=== PATIENT | female | born 1970 | race Caucasian/White ===

== ENCOUNTER → 2022-02-10 08:45 | Outpatient (CLI) | payer OTHER, MEDICAID, SELFPAY ==
--- NOTE | 2022-02-10 08:47 | DI.MRI.S_ITS ---
PROCEDURE: MR LUMBAR SPINE WO CON INDICATIONS: CHRONIC PROGRESSIVE LBP TECHNIQUE: Noncontrast sagittal T1 spin echo and T2 fast echo, coronal T2, sagittal STIR, and T2 fast spin echo through the lumbar spine. COMPARISON: [facility], CR, XR LUMBAR SPINE 2 OR 3 VIEWS, 05/20/2021, 8:02. FINDINGS: Image quality: Excellent. Alignment and Curvature: 5 lumbar type vertebral bodies are present by plain film. 6 mm of retrolisthesis of T12 on L1, L1 on L2, and L2 on L3. 4 mm of retrolisthesis of L3 on L4. Bone Marrow: Marrow is of normal overall signal. No acute vertebral body compression fractures. Mild reactive signal throughout the endplates of the thoracolumbar spine. Spinal Cord: Conus medullaris terminates at the mid L2 level. Visualized cord demonstrates normal signal and size. Paraspinous Soft Tissues: No paravertebral masses. T12-L1: Moderate disc height loss and desiccation. Mild diffuse disc bulge. Mild facet and ligamentum flavum hypertrophy. Mild epidural lipomatosis. Mild canal stenosis. Moderate right greater than left foraminal stenosis. L1-L2: Moderate disc height loss and desiccation. Mild diffuse disc bulge. Mild facet and ligamentum flavum hypertrophy. Mild epidural lipomatosis. Mild canal stenosis. Moderate left and mild right foraminal stenosis. L2-L3: Moderate disc height loss and desiccation. Mild diffuse disc bulge. Mild facet and ligamentum flavum hypertrophy. Mild epidural lipomatosis. Severe canal stenosis. Moderate bilateral foraminal stenosis. L3-L4: Moderate disc height loss and desiccation. Mild diffuse disc bulge. Mild facet and ligamentum flavum hypertrophy. Mild epidural lipomatosis. Severe canal stenosis. Moderate bilateral foraminal stenosis. L4-L5: Moderate disc height loss and desiccation. Mild diffuse disc bulge. Moderate facet and ligamentum flavum hypertrophy. Severe canal stenosis. Moderate subarticular foraminal stenosis bilaterally. L5-S1: Severe disc height loss and desiccation. Mild diffuse disc bulge. Moderate facet hypertrophy. Mild canal stenosis. Moderate right and mild left foraminal stenosis. IMPRESSION: 1. Multilevel degenerative disc and facet disease, as well as ligamentum flavum hypertrophy and epidural lipomatosis. 2. Multilevel canal stenoses, worst at L2-L3, L3-L4, and L4-L5, where there are severe canal stenosis. 3. Multilevel moderate foraminal stenosis as described above. Dictated by: Kesha Baeza M.D. on 02/10/2022 at 10:58 Transcribed by: ARCHANA on 02/10/2022 at 11:02 Approved by: Kesha Baeza M.D. on 02/10/2022 at 14:51
== END ==
PROVIDERS: PCP Nurse Practitioner; Referring Provider Physical Medicine & Rehabilitation; Visit Provider Physical Medicine & Rehabilitation
DX: M47.816 Spondylosis without myelopathy or radiculopathy, lumbar region (principal); M51.36 Other intervertebral disc degeneration, lumbar region; M51.37 Other intervertebral disc degeneration, lumbosacral region; M48.061 Spinal stenosis, lumbar region without neurogenic claudication; M48.07 Spinal stenosis, lumbosacral region; M43.16 Spondylolisthesis, lumbar region
CPT/HCPCS: 72148

== ENCOUNTER → 2022-03-29 07:58 | Outpatient (CLI) | payer OTHER, MEDICAID, SELFPAY ==
--- NOTE | 2022-03-29 | DI.RAD.S_ITS ---
PROCEDURE: XR CHEST 2V INDICATIONS: PAIN WITH BREATHING TECHNIQUE: 2 views of the chest were acquired. COMPARISON: None. FINDINGS: Surgical changes and devices: None. Lungs and pleura: Lungs are clear. No pleural effusions or pneumothorax. Mediastinum: Mediastinal contours are normal. Heart size is normal. Bones and chest wall: No suspicious bony abnormalities. Soft tissues appear unremarkable. IMPRESSION: No acute cardiopulmonary process demonstrated radiographically. Dictated by: Cornel Pimentel M.D. on 03/29/2022 at 11:37 Approved by: Cornel Pimentel M.D. on 03/29/2022 at 11:38
== END ==
PROVIDERS: PCP Nurse Practitioner; Referring Provider Nurse Practitioner; Visit Provider Nurse Practitioner
DX: R07.1 Chest pain on breathing (principal)
CPT/HCPCS: 71046

== ENCOUNTER 2023-05-25 10:30 | Outpatient (RCR) | payer OTHER, MEDICAID, SELFPAY ==
--- NOTE | 2023-04-25 09:03 | PT.OIE ---
Current Diagnoses Spondylolisthesis, lumbar region (04/25/23) Spondylosis without myelopathy or radiculopathy, lumbar region (04/25/23) Segmental and somatic dysfunction of thoracic region (04/25/23) Segmental and somatic dysfunction of lumbar region (04/25/23) Difficulty in walking, not elsewhere classified (04/25/23) Abnormal posture (04/25/23) Weakness (04/25/23) Past Medical History (Last Reviewed 03/06/22 @ 08:42 by Lonny Mora DO) Cervical somatic dysfunction Chronic bilateral low back pain with bilateral sciatica Chronic bilateral thoracic back pain Cranial somatic dysfunction Facet arthropathy, lumbar History of intervertebral disc disorder Hx of substance abuse Lumbar region somatic dysfunction Pelvic somatic dysfunction Sacral region somatic dysfunction Segmental and somatic dysfunction of abdomen and other regions Segmental and somatic dysfunction of rib cage Somatic dysfunction of lower extremity Spondylolisthesis at L4-L5 level Thoracic region somatic dysfunction Past Surgical History (Last Reviewed 03/06/22 @ 08:42 by Lonny Mora DO) H/O: hysterectomy Visit Care Team Role Provider Type KIRSTIE Londono Family Provider Non-Staff Primary Care Provider Specialty: Nursing Address: [facility], [address] [place], [address] Email: Lonny Mora DO Attending Provider Physician Referring Provider Specialty: Interventional Radiology Physiatry Pain Management Address: [address] [place], [address] Email: [email or web address] Physical Therapy Initial Evaluation PT-OP-A Visit Information Start: 04/05/23 10:11 Freq: Status: Active Protocol: Document 04/25/23 07:29 [facility] (Rec: 04/25/23 09:03 [facility] [id number]) Out-Patient Physical Therapy Visit Information Visit Information Visit Type Initial Evaluation Visit Start Time 07:32 Visit Stop Time 08:15 Visit Number 1 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 History of Current Condition Pt reports LBP and B hip pain (L>R). Pt also gets pain down ant legs to knnes L>R. 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 She felt a pop and felt fire from midback to B knees. She has had PT and aquatic PT, and massage. Aquatic PT was the only thing that helped. Pt has had injections (cortizone in spine ) and it made it worse for 3-4 days but no relief after that . THis was shortly after hurting herself. Pt not working d/t disabled. She was on pain killers for a long time and doctor watned to take her off. She now goes to the methadone clinic. Only surgery is hysterectomy. Pt reports hwen she is hurting really bad , it is hard to bear down for a BM and gets constipation. Sometimes she has an urgency to go. Prior Treatments and Tests MRI: IMPRESSION: 1. Multilevel degenerative disc and facet disease, as well as ligamentum flavum hypertrophy and epidural lipomatosis. 2. Multilevel canal stenoses, worst at L2-L3, L3-L4, and L4- L5, where there are severe canal stenosis. 3. Multilevel moderate foraminal stenosis as described above. Treatment Goals Patient/Caregiver Goals be able to live w/o crying out , be able to play with grandson on her feet and micha him like he likes(2.5 years old) PT-OP-C Subjective Start: 04/05/23 10:11 Freq: Status: Active Protocol: Document 04/25/23 07:29 [facility] (Rec: 04/25/23 09:03 [facility] [id number]) Patient Questionnaires Oswestry Low Back Index Oswestry Score 32/50 OP-PT Pain Assessment Location LBP Pain Location Details thoracic to lumbar to L>R hips Scale Used best: 5/10 worst: 10/10 Description Aching,Sharp Frequency Constant Radiating Location ant thighs to knees Pain Aggravating Factors Standing,Sitting,Walking, Bending,Lifting Other Pain Aggravating Factors laying in the wrong position Other Pain Alleviating Factors aquatic PT, change position when its painful PT-OP-F Manual Assessment Start: 04/05/23 10:11 Freq: Status: Active Protocol: Document 04/25/23 07:29 [facility] (Rec: 04/25/23 09:03 [facility] [id number]) Manual Assessments Soft Tissue Assessment Soft Tissue Mobility Assessment Glutes, piriformis, HS, ES, QL B tightness. PT-OP-G Mobility & Gait Start: 04/05/23 10:11 Freq: Status: Active Protocol: Document 04/25/23 07:29 [facility] (Rec: 04/25/23 09:03 [facility] [id number]) OP Gait Assessment Comments Gait Comments does not achieve full L knee ext, dec stance time LLE, B dec pusho ff, fwd lean PT-OP-J Posture/Palpation/Skin Start: 04/05/23 10:11 Freq: Status: Active Protocol: Document 04/25/23 07:29 [facility] (Rec: 04/25/23 09:03 [facility] [id number]) Posture Evaluation Comments Posture Comments inc fwd lean, L knee bent, wt more to RLE, flexed at hips, inc kyphosis, fwd shoulders and head, loss of kyphosis PT-OP-K Range of Motion Start: 04/05/23 10:11 Freq: Status: Active Protocol: Document 04/25/23 07:29 [facility] (Rec: 04/25/23 09:03 [facility] [id number]) Lumbar Spine Range of Motion Lumbar Spine Active Percentage Flexion 15 Extension 5 Rotation Left 10 Rotation Right 10 Lateral Flexion Left 25 Lateral Flexion Right 25 ROM Limitations Pain Comments pain all directions Hip Goniometric Range of Motion Hip ROM Limitations Comments unable to tolerate flex greart then about 60 deg passive B, unable to tolerate SLR testing , seated IR WFL, dec ER w/ limited tolerated to ROM in supine-seated shows limit PT-OP-L Special Tests Start: 04/05/23 10:11 Freq: Status: Active Protocol: Document 04/25/23 07:29 [facility] (Rec: 04/25/23 09:03 [facility] [id number]) Special Tests Lumbar Spine Special Tests Slump Test Results positive B (L sooner than R) Straight Leg Raise Test Results unable to tolerate test PT-OP-M Strength Start: 04/05/23 10:11 Freq: Status: Active Protocol: Document 04/25/23 07:29 [facility] (Rec: 04/25/23 09:03 [facility] [id number]) Hip Strength Hip Manual Muscle Testing Right Flexion (L2) 3 Fair Abduction 2+ Poor+ External Rotation 3+ Fair+ Internal Rotation 3+ Fair+ Left Flexion (L2) 3 Fair Abduction 2+ Poor+ External Rotation 3+ Fair+ Internal Rotation 3+ Fair+ Knee Strength Knee Manual Muscle Testing Right Flexion (S2) 3 Fair Extension (L3) 3 Fair Left Flexion (S2) 3 Fair Extension (L3) 3+ Fair+ Ankle/Foot Strength Ankle and Foot Manual Muscle Testing Right Dorsiflexion (L4) 3+ Fair+ Plantarflexion (S1) 4- Good- Left Dorsiflexion (L4) 4- Good- Plantarflexion (S1) 4- Good- Comments PF seated testing PT-OP-Q Treatments Start: 04/05/23 10:11 Freq: Status: Active Protocol: Document 04/25/23 07:29 [facility] (Rec: 04/25/23 09:03 [facility] [id number]) Therapeutic Exercises Sitting Exercises pelvic tilt Sitting Exercise Name comfortable range Reps/Minutes 12 PF Side bilateral Equipment Used L2 Reps/Minutes 15 ea Hip ER Side bilateral Equipment Used L2 Reps/Minutes 20 Comments cues core engagement n glide Sitting Exercise Name comfortable range Side bilateral Reps/Minutes 12 april Sitting Exercise Name cues core engagement Side bilateral Comments 10 PT-OP-T Assessment and Plan Start: 04/05/23 10:11 Freq: Status: Active Protocol: Document 04/25/23 07:29 [facility] (Rec: 04/25/23 09:03 [facility] [id number]) Physical Therapy Assessment Rehab Potential Rehabilitation Potential Fair Evaluation Complexity Number of Personal Factors/Comorbidities 3 or More Number of Body Systems Impaired 4 or More Clinical Presentation at Evaluation Evolving Impairments Impairments Activity Tolerance,Balance, Functional Activities, Functional Mobility,Gait,Pain, Posture,ROM,Soft Tissue Mobility,Strength,Transfers Goals ALEX Impairment 32/50 Short Term Goal (STG) Pt will improve ALEX score to no greater than 27/50 to show improved functional ability STG Duration 4/ Chcf Goal (LTG) Pt will improve ALEX score to no greater than 20/50 to show improved functional ability LTG Duration 07/08 ROM Short Term Goal (STG) Improve flex to at least 30% of normal to improve ability to bend over STG Duration / Hook Puller Goal (LTG) Pt will improve ROM to at least 50% of normal range in all directions for lumbar spine to allow greater ease w/ ADLs LTG Duration 07/08 activity Hook Puller Goal (LTG) Pt will report being able to play in standing w/grandson more w/o severe inc in pain. LTG Duration 07/08 strength Short Term Goal (STG) Pt will be indep w/HEP STG Duration 05/27 Chcf Goal (LTG) Pt will show improved strength to at least 4/5 for all BLE LE MMT to allow greater ease w /mobility. LTG Duration 07/08 Assessment Summary Assessment Pt presents w/chronic thoracic and LBP w/radicaular pain into B hips and ant thighs. 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 She now has limited mobility and dec spinal and hip ROM d/t pain along w/significant weakness into LEs B. She is positive w/ neural tension testing and can get easily get flared w/ movement. SHe would benefit from skilled PT to try to improve her function and dec her pain to allow greater ease w/ADLs. Physical Therapy Plan Frequency and Duration Frequency of Treatment 2x/Week Duration of treatment (weeks) 10 Plan of Care Start Date 04/25/23 Plan of Care End Date 07/04/23 Therapeutic Interventions Therapeutic Interventions Balance Training,Gait Training ,Home Exercise Program,Joint Mobilizations,Manual Therapy, Neuromuscular Re-education, Orthotic/Prosthetic Management ,Patient/Caregiver Education, Self-Care/Home Management,Soft Tissue Mobilization,Taping, Therapeutic Activities, Therapeutic Exercises Modalities Cold Pack/Ice Massage,Hot Packs,Traction- Mechanical, Ultrasound Next Visit Focus/Plan Next Note Type Treatment Note Next Visit Plan Place yoga mat on table for inc cushion review HEP, try to get gentle ROM and strength for hips, back and LEs manual: gentle STM to hips, HS , LB
--- NOTE | 2023-04-25 09:03 | PT.OPPOC ---
Physical, Occupational & Speech Therapy At [facility] Current Diagnoses Spondylolisthesis, lumbar region (04/25/23) Spondylosis without myelopathy or radiculopathy, lumbar region (04/25/23) Segmental and somatic dysfunction of thoracic region (04/25/23) Segmental and somatic dysfunction of lumbar region (04/25/23) Difficulty in walking, not elsewhere classified (04/25/23) Abnormal posture (04/25/23) Weakness (04/25/23) Visit Care Team Role Provider Type KIRSTIE Londono Family Provider Non-Staff Primary Care Provider Specialty: Nursing Address: [facility], [address] , [place], [address] Email: Lonny Mora DO Attending Provider Physician Referring Provider Specialty: Interventional Radiology Physiatry Pain Management Address: [address] [place], [address] Email: [email or web address] Plan Of Care PT-OP-T Assessment and Plan Start: 04/05/23 10:11 Freq: Status: Active Protocol: Document 04/25/23 07:29 [facility] (Rec: 04/25/23 09:03 [facility] [id number]) Physical Therapy Assessment Rehab Potential Rehabilitation Potential Fair Evaluation Complexity Number of Personal Factors/Comorbidities 3 or More Number of Body Systems Impaired 4 or More Clinical Presentation at Evaluation Evolving Impairments Impairments Activity Tolerance,Balance, Functional Activities, Functional Mobility,Gait,Pain, Posture,ROM,Soft Tissue Mobility,Strength,Transfers Goals ALEX Impairment 32/50 Short Term Goal (STG) Pt will improve ALEX score to no greater than 27/50 to show improved functional ability STG Duration 4/ Tourist Adviser Goal (LTG) Pt will improve ALEX score to no greater than 20/50 to show improved functional ability LTG Duration 07/08 ROM Short Term Goal (STG) Improve flex to at least 30% of normal to improve ability to bend over STG Duration 4/2 Tourist Adviser Goal (LTG) Pt will improve ROM to at least 50% of normal range in all directions for lumbar spine to allow greater ease w/ ADLs LTG Duration 07/08 activity Mcc Goal (LTG) Pt will report being able to play in standing w/grandson more w/o severe inc in pain. LTG Duration 07/08 strength Short Term Goal (STG) Pt will be indep w/HEP STG Duration 05/27 Tourist Adviser Goal (LTG) Pt will show improved strength to at least 4/5 for all BLE LE MMT to allow greater ease w /mobility. LTG Duration 07/08 Assessment Summary Assessment Pt presents w/chronic thoracic and LBP w/radicaular pain into B hips and ant thighs. 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 She now has limited mobility and dec spinal and hip ROM d/t pain along w/significant weakness into LEs B. She is positive w/ neural tension testing and can get easily get flared w/ movement. SHe would benefit from skilled PT to try to improve her function and dec her pain to allow greater ease w/ADLs. Physical Therapy Plan Frequency and Duration Frequency of Treatment 2x/Week Duration of treatment (weeks) 10 Plan of Care Start Date 04/25/23 Plan of Care End Date 07/04/23 Therapeutic Interventions Therapeutic Interventions Balance Training,Gait Training ,Home Exercise Program,Joint Mobilizations,Manual Therapy, Neuromuscular Re-education, Orthotic/Prosthetic Management ,Patient/Caregiver Education, Self-Care/Home Management,Soft Tissue Mobilization,Taping, Therapeutic Activities, Therapeutic Exercises Modalities Cold Pack/Ice Massage,Hot Packs,Traction- Mechanical, Ultrasound Next Visit Focus/Plan Next Note Type Treatment Note Next Visit Plan Place yoga mat on table for inc cushion review HEP, try to get gentle ROM and strength for hips, back and LEs manual: gentle STM to hips, HS , LB Plan of Care Dates Plan of Care Start Date 04/25/23 Plan of Care End Date 07/04/23 Electronically Signed by: Kylah Contreras, PT 04/25/23 0903 If you are in agreement with this Plan of Care, please return a signed and dated copy. I have reviewed this Plan of Care and certify that the skilled therapy services above are required to meet the patient?s needs. Physician Signature Date Printed Name and Credentials Clinical Instructor Signature Printed Name and Credentials
--- NOTE | 2023-05-01 08:17 | PT.OTN ---
Current Diagnoses Spondylolisthesis, lumbar region (05/01/23) Spondylosis without myelopathy or radiculopathy, lumbar region (05/01/23) Segmental and somatic dysfunction of thoracic region (05/01/23) Segmental and somatic dysfunction of lumbar region (05/01/23) Difficulty in walking, not elsewhere classified (05/01/23) Abnormal posture (05/01/23) Weakness (05/01/23) Physical Therapy Treatment Note PT-OP-A Visit Information Start: 04/05/23 10:11 Freq: Status: Active Protocol: Document 05/01/23 07:30 [facility] (Rec: 05/01/23 08:17 [facility] [id number]) Out-Patient Physical Therapy Visit Information Visit Information Visit Type Treatment Note Visit Start Time 07:33 Visit Stop Time 08:13 Visit Number 2 Number of METAL OFF BEARER Visits 0 PT-OP-B Current Condition Start: 04/05/23 10:11 Freq: Status: Active Protocol: Document 04/25/23 07:29 [facility] (Rec: 04/25/23 09:03 [facility] [id number]) Current Condition History of Current Condition Onset Date 1994 Current Complaints LBP and B hip pain. History of Current Condition Pt reports LBP and B hip pain (L>R). Pt also gets pain down ant legs to knnes L>R. 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 She felt a pop and felt fire from midback to B knees. She has had PT and aquatic PT, and massage. Aquatic PT was the only thing that helped. Pt has had injections (cortizone in spine ) and it made it worse for 3-4 days but no relief after that . THis was shortly after hurting herself. Pt not working d/t disabled. She was on pain killers for a long time and doctor watned to take her off. She now goes to the methadone clinic. Only surgery is hysterectomy. Pt reports hwen she is hurting really bad , it is hard to bear down for a BM and gets constipation. Sometimes she has an urgency to go. Prior Treatments and Tests MRI: IMPRESSION: 1. Multilevel degenerative disc and facet disease, as well as ligamentum flavum hypertrophy and epidural lipomatosis. 2. Multilevel canal stenoses, worst at L2-L3, L3-L4, and L4- L5, where there are severe canal stenosis. 3. Multilevel moderate foraminal stenosis as described above. Treatment Goals Patient/Caregiver Goals be able to live w/o crying out , be able to play with grandson on her feet and micha him like he likes(2.5 years old) PT-OP-C Subjective Start: 04/05/23 10:11 Freq: Status: Active Protocol: Document 05/01/23 07:30 [facility] (Rec: 05/01/23 08:17 [facility] [id number]) OP-PT Subjective Patient Comments Patient Comments Pt reports after doing the exercises, she had difficulty walking. She feels like the ones w/the legs w/the band. PT-OP-F Manual Assessment Start: 04/05/23 10:11 Freq: Status: Active Protocol: Document 04/25/23 07:29 [facility] (Rec: 04/25/23 09:03 [facility] [id number]) Manual Assessments Soft Tissue Assessment Soft Tissue Mobility Assessment Glutes, piriformis, HS, ES, QL B tightness. PT-OP-G Mobility & Gait Start: 04/05/23 10:11 Freq: Status: Active Protocol: Document 04/25/23 07:29 [facility] (Rec: 04/25/23 09:03 [facility] [id number]) OP Gait Assessment Comments Gait Comments does not achieve full L knee ext, dec stance time LLE, B dec pusho ff, fwd lean PT-OP-J Posture/Palpation/Skin Start: 04/05/23 10:11 Freq: Status: Active Protocol: Document 04/25/23 07:29 [facility] (Rec: 04/25/23 09:03 [facility] [id number]) Posture Evaluation Comments Posture Comments inc fwd lean, L knee bent, wt more to RLE, flexed at hips, inc kyphosis, fwd shoulders and head, loss of kyphosis PT-OP-K Range of Motion Start: 04/05/23 10:11 Freq: Status: Active Protocol: Document 04/25/23 07:29 [facility] (Rec: 04/25/23 09:03 [facility] [id number]) Lumbar Spine Range of Motion Lumbar Spine Active Percentage Flexion 15 Extension 5 Rotation Left 10 Rotation Right 10 Lateral Flexion Left 25 Lateral Flexion Right 25 ROM Limitations Pain Comments pain all directions Hip Goniometric Range of Motion Hip ROM Limitations Comments unable to tolerate flex greart then about 60 deg passive B, unable to tolerate SLR testing , seated IR WFL, dec ER w/ limited tolerated to ROM in supine-seated shows limit PT-OP-L Special Tests Start: 04/05/23 10:11 Freq: Status: Active Protocol: Document 04/25/23 07:29 [facility] (Rec: 04/25/23 09:03 [facility] [id number]) Special Tests Lumbar Spine Special Tests Slump Test Results positive B (L sooner than R) Straight Leg Raise Test Results unable to tolerate test PT-OP-M Strength Start: 04/05/23 10:11 Freq: Status: Active Protocol: Document 04/25/23 07:29 [facility] (Rec: 04/25/23 09:03 [facility] [id number]) Hip Strength Hip Manual Muscle Testing Right Flexion (L2) 3 Fair Abduction 2+ Poor+ External Rotation 3+ Fair+ Internal Rotation 3+ Fair+ Left Flexion (L2) 3 Fair Abduction 2+ Poor+ External Rotation 3+ Fair+ Internal Rotation 3+ Fair+ Knee Strength Knee Manual Muscle Testing Right Flexion (S2) 3 Fair Extension (L3) 3 Fair Left Flexion (S2) 3 Fair Extension (L3) 3+ Fair+ Ankle/Foot Strength Ankle and Foot Manual Muscle Testing Right Dorsiflexion (L4) 3+ Fair+ Plantarflexion (S1) 4- Good- Left Dorsiflexion (L4) 4- Good- Plantarflexion (S1) 4- Good- Comments PF seated testing PT-OP-Q Treatments Start: 04/05/23 10:11 Freq: Status: Active Protocol: Document 05/01/23 07:30 [facility] (Rec: 05/01/23 08:17 [facility] [id number]) Therapeutic Exercises Sitting Exercises pelvic tilt Sitting Exercise Name A/P; lat Side bilateral Reps/Minutes 15 ea PF Sitting Exercise Name APs Side bilateral Reps/Minutes 30 ea Hip ER Side bilateral Equipment Used no band Reps/Minutes 20 Comments cues core engagement n glide Sitting Exercise Name comfortable range Side bilateral Reps/Minutes 11 may Sitting Exercise Name cues core engagement Side bilateral Reps/Minutes 15 Standing Exercises counter stretch Standing Exercise Name fwd lean Side bilateral Reps/Minutes [id number] Manual Therapy Treatment Soft Tissue Mobilization glute Body Location L>R Mobilization Type Rolling,Sustained Pressure Intensity/Depth Moderate Body Position Sidelying low back Body Location B ES & QL Mobilization Type Myofascial Release,Rolling Intensity/Depth sup to mod Body Position Sidelying PT-OP-T Assessment and Plan Start: 04/05/23 10:11 Freq: Status: Active Protocol: Document 05/01/23 07:30 [facility] (Rec: 05/01/23 08:17 [facility] [id number]) Physical Therapy Assessment Goals ALEX Impairment 32/50 Short Term Goal (STG) Pt will improve ALEX score to no greater than 27/50 to show improved functional ability STG Duration 05/27 Penitentiary Goal (LTG) Pt will improve ALEX score to no greater than 20/50 to show improved functional ability LTG Duration 07/08 ROM Short Term Goal (STG) Improve flex to at least 30% of normal to improve ability to bend over STG Duration 05/28 Pinball Machine Repairer Goal (LTG) Pt will improve ROM to at least 50% of normal range in all directions for lumbar spine to allow greater ease w/ ADLs LTG Duration 07/08 activity Penitentiary Goal (LTG) Pt will report being able to play in standing w/grandson more w/o severe inc in pain. LTG Duration 07/08 strength Short Term Goal (STG) Pt will be indep w/HEP STG Duration 05/27 Pinball Machine Repairer Goal (LTG) Pt will show improved strength to at least 4/5 for all BLE LE MMT to allow greater ease w /mobility. LTG Duration 07/08 Assessment Summary Assessment Pt did well with transition of exercises to without the band . She does require cues for core engagement and posture throughout along w/working only into comfortable range. pt had dec mm tension after manual. Physical Therapy Plan Frequency and Duration Frequency of Treatment 2x/Week Duration of treatment (weeks) 10 Plan of Care Start Date 04/25/23 Plan of Care End Date 07/04/23 Next Visit Focus/Plan Next Note Type Treatment Note Next Visit Plan Place yoga mat on table for inc cushion review HEP, try to get gentle ROM and strength for hips, back and LEs manual: gentle STM to hips, HS , LB
--- NOTE | 2023-05-04 11:20 | PT.OTN ---
Current Diagnoses Spondylolisthesis, lumbar region (05/04/23) Spondylosis without myelopathy or radiculopathy, lumbar region (05/04/23) Segmental and somatic dysfunction of thoracic region (05/04/23) Segmental and somatic dysfunction of lumbar region (05/04/23) Difficulty in walking, not elsewhere classified (05/04/23) Abnormal posture (05/04/23) Weakness (05/04/23) Physical Therapy Treatment Note PT-OP-A Visit Information Start: 04/05/23 10:11 Freq: Status: Active Protocol: Document 05/04/23 10:41 [facility] (Rec: 05/04/23 11:24 [facility] [id number]) Out-Patient Physical Therapy Visit Information Visit Information Visit Type Treatment Note Visit Note Pt 11 min late Visit Start Time 10:41 Visit Stop Time 11:20 Visit Number 3 Number of CONTINUING EDUCATION SPECIALIST Visits 1 PT-OP-B Current Condition Start: 04/05/23 10:11 Freq: Status: Active Protocol: Document 04/25/23 07:29 [facility] (Rec: 04/25/23 09:03 [facility] [id number]) Current Condition History of Current Condition Onset Date 1994 Current Complaints LBP and B hip pain. History of Current Condition Pt reports LBP and B hip pain (L>R). Pt also gets pain down ant legs to knnes L>R. 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 She felt a pop and felt fire from midback to B knees. She has had PT and aquatic PT, and massage. Aquatic PT was the only thing that helped. Pt has had injections (cortizone in spine ) and it made it worse for 3-4 days but no relief after that . THis was shortly after hurting herself. Pt not working d/t disabled. She was on pain killers for a long time and doctor watned to take her off. She now goes to the methadone clinic. Only surgery is hysterectomy. Pt reports hwen she is hurting really bad , it is hard to bear down for a BM and gets constipation. Sometimes she has an urgency to go. Prior Treatments and Tests MRI: IMPRESSION: 1. Multilevel degenerative disc and facet disease, as well as ligamentum flavum hypertrophy and epidural lipomatosis. 2. Multilevel canal stenoses, worst at L2-L3, L3-L4, and L4- L5, where there are severe canal stenosis. 3. Multilevel moderate foraminal stenosis as described above. Treatment Goals Patient/Caregiver Goals be able to live w/o crying out , be able to play with grandson on her feet and micha him like he likes(2.5 years old) PT-OP-C Subjective Start: 04/05/23 10:11 Freq: Status: Active Protocol: Document 05/04/23 10:41 [facility] (Rec: 05/04/23 11:24 [facility] [id number]) OP-PT Subjective Patient Comments Patient Comments Pt arrived slouch fwd little uneven stepping with reports of in high pain in R LB and L posterolateral ribcage. She stated did feel better after last tx, not using band helpful. She has hard time back and side sleeping due to pain can't get comfortable. PT-OP-F Manual Assessment Start: 04/05/23 10:11 Freq: Status: Active Protocol: Document 04/25/23 07:29 [facility] (Rec: 04/25/23 09:03 [facility] [id number]) Manual Assessments Soft Tissue Assessment Soft Tissue Mobility Assessment Glutes, piriformis, HS, ES, QL B tightness. PT-OP-G Mobility & Gait Start: 04/05/23 10:11 Freq: Status: Active Protocol: Document 04/25/23 07:29 [facility] (Rec: 04/25/23 09:03 [facility] [id number]) OP Gait Assessment Comments Gait Comments does not achieve full L knee ext, dec stance time LLE, B dec pusho ff, fwd lean PT-OP-J Posture/Palpation/Skin Start: 04/05/23 10:11 Freq: Status: Active Protocol: Document 04/25/23 07:29 [facility] (Rec: 04/25/23 09:03 [facility] [id number]) Posture Evaluation Comments Posture Comments inc fwd lean, L knee bent, wt more to RLE, flexed at hips, inc kyphosis, fwd shoulders and head, loss of kyphosis PT-OP-K Range of Motion Start: 04/05/23 10:11 Freq: Status: Active Protocol: Document 04/25/23 07:29 [facility] (Rec: 04/25/23 09:03 [facility] [id number]) Lumbar Spine Range of Motion Lumbar Spine Active Percentage Flexion 15 Extension 5 Rotation Left 10 Rotation Right 10 Lateral Flexion Left 25 Lateral Flexion Right 25 ROM Limitations Pain Comments pain all directions Hip Goniometric Range of Motion Hip ROM Limitations Comments unable to tolerate flex greart then about 60 deg passive B, unable to tolerate SLR testing , seated IR WFL, dec ER w/ limited tolerated to ROM in supine-seated shows limit PT-OP-L Special Tests Start: 04/05/23 10:11 Freq: Status: Active Protocol: Document 04/25/23 07:29 [facility] (Rec: 04/25/23 09:03 [facility] [id number]) Special Tests Lumbar Spine Special Tests Slump Test Results positive B (L sooner than R) Straight Leg Raise Test Results unable to tolerate test PT-OP-M Strength Start: 04/05/23 10:11 Freq: Status: Active Protocol: Document 04/25/23 07:29 [facility] (Rec: 04/25/23 09:03 [facility] [id number]) Hip Strength Hip Manual Muscle Testing Right Flexion (L2) 3 Fair Abduction 2+ Poor+ External Rotation 3+ Fair+ Internal Rotation 3+ Fair+ Left Flexion (L2) 3 Fair Abduction 2+ Poor+ External Rotation 3+ Fair+ Internal Rotation 3+ Fair+ Knee Strength Knee Manual Muscle Testing Right Flexion (S2) 3 Fair Extension (L3) 3 Fair Left Flexion (S2) 3 Fair Extension (L3) 3+ Fair+ Ankle/Foot Strength Ankle and Foot Manual Muscle Testing Right Dorsiflexion (L4) 3+ Fair+ Plantarflexion (S1) 4- Good- Left Dorsiflexion (L4) 4- Good- Plantarflexion (S1) 4- Good- Comments PF seated testing PT-OP-Q Treatments Start: 04/05/23 10:11 Freq: Status: Active Protocol: Document 05/04/23 10:41 [facility] (Rec: 05/04/23 11:24 [facility] [id number]) Therapeutic Exercises Sidelying Exercises open book & shld ABD Sidelying Exercise Name gentle pnfree range with breah last rep Side left Reps/Minutes 5 reps Comments tactile scap ROM, breath in/ exhale- improved ribcage expansion mob- self Sitting Exercises pelvic tilt Sitting Exercise Name A/P; lat Side bilateral Equipment Used seated on 65 cm tball (uses at home too) Reps/Minutes 15 ea Comments good response less back tension Hip ER Side bilateral Equipment Used no band Reps/Minutes 20 Comments cues core engagement and elevated posture away from chair back n glide Sitting Exercise Name comfortable range Side bilateral Reps/Minutes 15 Comments head up with toe up/ reverse- pnfree less tension reported march Sitting Exercise Name cues core engagement Side bilateral Equipment Used seated on 65cmtball Reps/Minutes 15 Standing Exercises counter stretch Standing Exercise Name fwd lean Side bilateral Reps/Minutes [id number] Manual Therapy Treatment Soft Tissue Mobilization glute Body Location L>R Mobilization Type Rolling,Sustained Pressure Intensity/Depth Superficial Body Position Sidelying low back Body Location B ES & QL, L intercostals Rib T9-11 Mobilization Type Myofascial Release,Rolling Intensity/Depth superficial to moderate Body Position Sidelying Manual Traction L lat ribcage Details caudal pressure T8-11 with exhale breath Body Position R SL Comments improved ribcage expansion LS Details caudal pressure on iliam /c exhale breath Body Position B side Comments good feedback response, less LBP PT-OP-T Assessment and Plan Start: 04/05/23 10:11 Freq: Status: Active Protocol: Document 05/04/23 10:41 [facility] (Rec: 05/04/23 11:24 [facility] [id number]) Physical Therapy Assessment Goals ALEX Impairment 32/50 Short Term Goal (STG) Pt will improve ALEX score to no greater than 27/50 to show improved functional ability STG Duration 05/27 Tromper Goal (LTG) Pt will improve ALEX score to no greater than 20/50 to show improved functional ability LTG Duration 07/08 ROM Short Term Goal (STG) Improve flex to at least 30% of normal to improve ability to bend over STG Duration 05/28 Tromper Goal (LTG) Pt will improve ROM to at least 50% of normal range in all directions for lumbar spine to allow greater ease w/ ADLs LTG Duration 07/08 activity Tromper Goal (LTG) Pt will report being able to play in standing w/grandson more w/o severe inc in pain. LTG Duration 07/08 strength Short Term Goal (STG) Pt will be indep w/HEP STG Duration 05/27 Fpc Goal (LTG) Pt will show improved strength to at least 4/5 for all BLE LE MMT to allow greater ease w /mobility. LTG Duration 07/08 Assessment Summary Assessment Pt reports decreased tension and increase TS mobility post manual and ed use breath and UE AROM, added toHEP with HOs. Tactile cues for scapular glide with cues education pnfree range. Improved TA and trunk alignment correction withcuing during HEP review seated. Pt improved segmental mobilty through ribcage/TS and more relaxed face end tx putting on coat and walking out. Less pain than when came in. Physical Therapy Plan Frequency and Duration Frequency of Treatment 2x/Week Duration of treatment (weeks) 10 Plan of Care Start Date 04/25/23 Plan of Care End Date 07/04/23 Therapeutic Interventions Therapeutic Interventions Balance Training,Gait Training ,Home Exercise Program,Joint Mobilizations,Manual Therapy, Neuromuscular Re-education, Orthotic/Prosthetic Management ,Patient/Caregiver Education, Self-Care/Home Management,Soft Tissue Mobilization,Taping, Therapeutic Activities, Therapeutic Exercises Modalities Cold Pack/Ice Massage,Hot Packs,Traction- Mechanical, Ultrasound Next Visit Focus/Plan Next Note Type Treatment Note Next Visit Plan Place yoga mat on table for inc cushion review HEP, try to get gentle ROM and strength for hips, back and LEs manual: gentle STM to hips, HS , LB
--- NOTE | 2023-05-07 09:45 | PT.OTN ---
Current Diagnoses Spondylolisthesis, lumbar region (05/07/23) Spondylosis without myelopathy or radiculopathy, lumbar region (05/07/23) Segmental and somatic dysfunction of thoracic region (05/07/23) Segmental and somatic dysfunction of lumbar region (05/07/23) Difficulty in walking, not elsewhere classified (05/07/23) Abnormal posture (05/07/23) Weakness (05/07/23) Physical Therapy Treatment Note PT-OP-A Visit Information Start: 04/05/23 10:11 Freq: Status: Active Protocol: Document 05/07/23 09:04 [facility] (Rec: 05/07/23 09:45 [facility] [id number]) Out-Patient Physical Therapy Visit Information Visit Information Visit Type Treatment Note Visit Start Time 09:04 Visit Stop Time 09:59 Visit Number 4 Number of COLORECTAL SURGEON Visits 0 PT-OP-B Current Condition Start: 04/05/23 10:11 Freq: Status: Active Protocol: Document 04/25/23 07:29 [facility] (Rec: 04/25/23 09:03 [facility] [id number]) Current Condition History of Current Condition Onset Date 1994 Current Complaints LBP and B hip pain. History of Current Condition Pt reports LBP and B hip pain (L>R). Pt also gets pain down ant legs to knnes L>R. 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 She felt a pop and felt fire from midback to B knees. She has had PT and aquatic PT, and massage. Aquatic PT was the only thing that helped. Pt has had injections (cortizone in spine ) and it made it worse for 3-4 days but no relief after that . THis was shortly after hurting herself. Pt not working d/t disabled. She was on pain killers for a long time and doctor watned to take her off. She now goes to the methadone clinic. Only surgery is hysterectomy. Pt reports hwen she is hurting really bad , it is hard to bear down for a BM and gets constipation. Sometimes she has an urgency to go. Prior Treatments and Tests MRI: IMPRESSION: 1. Multilevel degenerative disc and facet disease, as well as ligamentum flavum hypertrophy and epidural lipomatosis. 2. Multilevel canal stenoses, worst at L2-L3, L3-L4, and L4- L5, where there are severe canal stenosis. 3. Multilevel moderate foraminal stenosis as described above. Treatment Goals Patient/Caregiver Goals be able to live w/o crying out , be able to play with grandson on her feet and micha him like he likes(2.5 years old) PT-OP-C Subjective Start: 04/05/23 10:11 Freq: Status: Active Protocol: Document 05/07/23 09:04 [facility] (Rec: 05/07/23 09:45 [facility] [id number]) OP-PT Subjective Patient Comments Patient Comments Pt reports exercises going well at home. PT-OP-F Manual Assessment Start: 04/05/23 10:11 Freq: Status: Active Protocol: Document 04/25/23 07:29 [facility] (Rec: 04/25/23 09:03 [facility] [id number]) Manual Assessments Soft Tissue Assessment Soft Tissue Mobility Assessment Glutes, piriformis, HS, ES, QL B tightness. PT-OP-G Mobility & Gait Start: 04/05/23 10:11 Freq: Status: Active Protocol: Document 04/25/23 07:29 [facility] (Rec: 04/25/23 09:03 [facility] [id number]) OP Gait Assessment Comments Gait Comments does not achieve full L knee ext, dec stance time LLE, B dec pusho ff, fwd lean PT-OP-J Posture/Palpation/Skin Start: 04/05/23 10:11 Freq: Status: Active Protocol: Document 04/25/23 07:29 [facility] (Rec: 04/25/23 09:03 [facility] [id number]) Posture Evaluation Comments Posture Comments inc fwd lean, L knee bent, wt more to RLE, flexed at hips, inc kyphosis, fwd shoulders and head, loss of kyphosis PT-OP-K Range of Motion Start: 04/05/23 10:11 Freq: Status: Active Protocol: Document 04/25/23 07:29 [facility] (Rec: 04/25/23 09:03 [facility] [id number]) Lumbar Spine Range of Motion Lumbar Spine Active Percentage Flexion 15 Extension 5 Rotation Left 10 Rotation Right 10 Lateral Flexion Left 25 Lateral Flexion Right 25 ROM Limitations Pain Comments pain all directions Hip Goniometric Range of Motion Hip ROM Limitations Comments unable to tolerate flex greart then about 60 deg passive B, unable to tolerate SLR testing , seated IR WFL, dec ER w/ limited tolerated to ROM in supine-seated shows limit PT-OP-L Special Tests Start: 04/05/23 10:11 Freq: Status: Active Protocol: Document 04/25/23 07:29 [facility] (Rec: 04/25/23 09:03 [facility] [id number]) Special Tests Lumbar Spine Special Tests Slump Test Results positive B (L sooner than R) Straight Leg Raise Test Results unable to tolerate test PT-OP-M Strength Start: 04/05/23 10:11 Freq: Status: Active Protocol: Document 04/25/23 07:29 [facility] (Rec: 04/25/23 09:03 [facility] [id number]) Hip Strength Hip Manual Muscle Testing Right Flexion (L2) 3 Fair Abduction 2+ Poor+ External Rotation 3+ Fair+ Internal Rotation 3+ Fair+ Left Flexion (L2) 3 Fair Abduction 2+ Poor+ External Rotation 3+ Fair+ Internal Rotation 3+ Fair+ Knee Strength Knee Manual Muscle Testing Right Flexion (S2) 3 Fair Extension (L3) 3 Fair Left Flexion (S2) 3 Fair Extension (L3) 3+ Fair+ Ankle/Foot Strength Ankle and Foot Manual Muscle Testing Right Dorsiflexion (L4) 3+ Fair+ Plantarflexion (S1) 4- Good- Left Dorsiflexion (L4) 4- Good- Plantarflexion (S1) 4- Good- Comments PF seated testing PT-OP-Q Treatments Start: 04/05/23 10:11 Freq: Status: Active Protocol: Document 05/07/23 09:04 [facility] (Rec: 05/07/23 09:45 [facility] [id number]) Therapeutic Exercises Sidelying Exercises open book & shld ABD Sidelying Exercise Name comfortable range Side bilateral Reps/Minutes 8 ea Comments cues w/beathing Sitting Exercises pelvic tilt Sitting Exercise Name A/P; lat Side bilateral Equipment Used seated on 65 cm tball (uses at home too) Reps/Minutes 15 ea Comments cues for use of deep breaths PF Sitting Exercise Name APs Side bilateral Equipment Used 3# on knees B Reps/Minutes 30 ea Hip ER Side bilateral Equipment Used no band Reps/Minutes 20 Comments cues core engagement and elevated posture away from chair back n glide Sitting Exercise Name comfortable range Side bilateral Reps/Minutes 15 Comments cues to keep head up march Sitting Exercise Name cues core engagement Side bilateral Equipment Used seated on 65cmtball Reps/Minutes 15 Standing Exercises march Side bilateral Reps/Minutes 4x5 Comments cues for posture, core and glutes hip abd Side bilateral Reps/Minutes 4x5 Comments cues for posture, core and glutes counter stretch Standing Exercise Name fwd lean Side bilateral Reps/Minutes [id number] Manual Therapy Treatment Soft Tissue Mobilization glute Body Location L>R Mobilization Type Rolling,Sustained Pressure Intensity/Depth Superficial Body Position Sidelying low back Body Location B ES & QL, L intercostals Rib T9-11 Mobilization Type Myofascial Release,Rolling Intensity/Depth superficial to moderate Body Position Sidelying PT-OP-R Modalities Start: 04/05/23 10:11 Freq: Status: Active Protocol: Document 05/07/23 09:04 [facility] (Rec: 05/07/23 09:45 [facility] [id number]) Hot Pack/Cold Pack Treatment Hot Pack Location LB/hip Patient Position Sidelying PT-OP-T Assessment and Plan Start: 04/05/23 10:11 Freq: Status: Active Protocol: Document 05/07/23 09:04 [facility] (Rec: 05/07/23 09:45 [facility] [id number]) Physical Therapy Assessment Goals ALEX Impairment 32/50 Short Term Goal (STG) Pt will improve ALEX score to no greater than 27/50 to show improved functional ability STG Duration 05/27 Radiologic Tech Goal (LTG) Pt will improve ALEX score to no greater than 20/50 to show improved functional ability LTG Duration 07/08 ROM Short Term Goal (STG) Improve flex to at least 30% of normal to improve ability to bend over STG Duration 05/28 Usp Goal (LTG) Pt will improve ROM to at least 50% of normal range in all directions for lumbar spine to allow greater ease w/ ADLs LTG Duration 07/08 activity Radiologic Tech Goal (LTG) Pt will report being able to play in standing w/grandson more w/o severe inc in pain. LTG Duration 07/08 strength Short Term Goal (STG) Pt will be indep w/HEP STG Duration 05/27 Usp Goal (LTG) Pt will show improved strength to at least 4/5 for all BLE LE MMT to allow greater ease w /mobility. LTG Duration 07/08 Assessment Summary Assessment Pt requires less cues w/seated exercise except occ postural cues to avoid head down/ shoulders up and add breathing . gradually inc ROM tolerated. Feels relief w/manual Physical Therapy Plan Frequency and Duration Frequency of Treatment 2x/Week Duration of treatment (weeks) 10 Plan of Care Start Date 04/25/23 Plan of Care End Date 07/04/23 Next Visit Focus/Plan Next Note Type Treatment Note Next Visit Plan Place yoga mat on table for inc cushion review HEP, try to get gentle ROM and strength for hips, back and LEs manual: gentle STM to hips, HS , LB
--- NOTE | 2023-05-16 11:04 | PT.OTN ---
Current Diagnoses Spondylolisthesis, lumbar region (05/16/23) Spondylosis without myelopathy or radiculopathy, lumbar region (05/16/23) Segmental and somatic dysfunction of thoracic region (05/16/23) Segmental and somatic dysfunction of lumbar region (05/16/23) Difficulty in walking, not elsewhere classified (05/16/23) Abnormal posture (05/16/23) Weakness (05/16/23) Physical Therapy Treatment Note PT-OP-A Visit Information Start: 04/05/23 10:11 Freq: Status: Active Protocol: Document 05/16/23 08:06 [facility] (Rec: 05/16/23 09:37 [facility] [id number]) Out-Patient Physical Therapy Visit Information Visit Information Visit Type Treatment Note Visit Note Access code for [facility] [email or web address] Visit Start Time 08:18 Visit Stop Time 09:01 Visit Number 5 Number of DIRECTOR REVENUE Visits 1 PT-OP-B Current Condition Start: 04/05/23 10:11 Freq: Status: Active Protocol: Document 04/25/23 07:29 [facility] (Rec: 04/25/23 09:03 [facility] [id number]) Current Condition History of Current Condition Onset Date 1994 Current Complaints LBP and B hip pain. History of Current Condition Pt reports LBP and B hip pain (L>R). Pt also gets pain down ant legs to knnes L>R. 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 She felt a pop and felt fire from midback to B knees. She has had PT and aquatic PT, and massage. Aquatic PT was the only thing that helped. Pt has had injections (cortizone in spine ) and it made it worse for 3-4 days but no relief after that . THis was shortly after hurting herself. Pt not working d/t disabled. She was on pain killers for a long time and doctor watned to take her off. She now goes to the methadone clinic. Only surgery is hysterectomy. Pt reports hwen she is hurting really bad , it is hard to bear down for a BM and gets constipation. Sometimes she has an urgency to go. Prior Treatments and Tests MRI: IMPRESSION: 1. Multilevel degenerative disc and facet disease, as well as ligamentum flavum hypertrophy and epidural lipomatosis. 2. Multilevel canal stenoses, worst at L2-L3, L3-L4, and L4- L5, where there are severe canal stenosis. 3. Multilevel moderate foraminal stenosis as described above. Treatment Goals Patient/Caregiver Goals be able to live w/o crying out , be able to play with grandson on her feet and micha him like he likes(2.5 years old) PT-OP-C Subjective Start: 04/05/23 10:11 Freq: Status: Active Protocol: Document 05/16/23 08:06 [facility] (Rec: 05/16/23 09:37 [facility] [id number]) OP-PT Subjective Patient Comments Patient Comments Stand to sit with UE use guarded movement start of session. Patient reports she is the same. PT-OP-F Manual Assessment Start: 04/05/23 10:11 Freq: Status: Active Protocol: Document 04/25/23 07:29 [facility] (Rec: 04/25/23 09:03 [facility] [id number]) Manual Assessments Soft Tissue Assessment Soft Tissue Mobility Assessment Glutes, piriformis, HS, ES, QL B tightness. PT-OP-G Mobility & Gait Start: 04/05/23 10:11 Freq: Status: Active Protocol: Document 04/25/23 07:29 [facility] (Rec: 04/25/23 09:03 [facility] [id number]) OP Gait Assessment Comments Gait Comments does not achieve full L knee ext, dec stance time LLE, B dec pusho ff, fwd lean PT-OP-J Posture/Palpation/Skin Start: 04/05/23 10:11 Freq: Status: Active Protocol: Document 04/25/23 07:29 [facility] (Rec: 04/25/23 09:03 [facility] [id number]) Posture Evaluation Comments Posture Comments inc fwd lean, L knee bent, wt more to RLE, flexed at hips, inc kyphosis, fwd shoulders and head, loss of kyphosis PT-OP-K Range of Motion Start: 04/05/23 10:11 Freq: Status: Active Protocol: Document 04/25/23 07:29 [facility] (Rec: 04/25/23 09:03 [facility] [id number]) Lumbar Spine Range of Motion Lumbar Spine Active Percentage Flexion 15 Extension 5 Rotation Left 10 Rotation Right 10 Lateral Flexion Left 25 Lateral Flexion Right 25 ROM Limitations Pain Comments pain all directions Hip Goniometric Range of Motion Hip ROM Limitations Comments unable to tolerate flex greart then about 60 deg passive B, unable to tolerate SLR testing , seated IR WFL, dec ER w/ limited tolerated to ROM in supine-seated shows limit PT-OP-L Special Tests Start: 04/05/23 10:11 Freq: Status: Active Protocol: Document 04/25/23 07:29 [facility] (Rec: 04/25/23 09:03 [facility] [id number]) Special Tests Lumbar Spine Special Tests Slump Test Results positive B (L sooner than R) Straight Leg Raise Test Results unable to tolerate test PT-OP-M Strength Start: 04/05/23 10:11 Freq: Status: Active Protocol: Document 04/25/23 07:29 [facility] (Rec: 04/25/23 09:03 [facility] [id number]) Hip Strength Hip Manual Muscle Testing Right Flexion (L2) 3 Fair Abduction 2+ Poor+ External Rotation 3+ Fair+ Internal Rotation 3+ Fair+ Left Flexion (L2) 3 Fair Abduction 2+ Poor+ External Rotation 3+ Fair+ Internal Rotation 3+ Fair+ Knee Strength Knee Manual Muscle Testing Right Flexion (S2) 3 Fair Extension (L3) 3 Fair Left Flexion (S2) 3 Fair Extension (L3) 3+ Fair+ Ankle/Foot Strength Ankle and Foot Manual Muscle Testing Right Dorsiflexion (L4) 3+ Fair+ Plantarflexion (S1) 4- Good- Left Dorsiflexion (L4) 4- Good- Plantarflexion (S1) 4- Good- Comments PF seated testing PT-OP-Q Treatments Start: 04/05/23 10:11 Freq: Status: Active Protocol: Document 05/16/23 08:06 [facility] (Rec: 05/16/23 09:37 [facility] [id number]) Therapeutic Exercises Supine Exercises abd bracing with LE ext Reps/Minutes X5 Comments verbal cues to extend LE minimallly and avoid holding breath breathing from diaphragm in modified restortive pose Comments vc for breathing Therapeutic Activity Therapeutic Activity supine to sit Name log roll Reps/Minutes X3 rolling to right X 1 rolling to left Comments left and right, one step verbal cues sit to stand Name with hip hinge Reps/Minutes 3 X Comments Patient ed mechanics of sit to stand, and use of self tactile cues for hip hinge Manual Therapy Treatment Soft Tissue Mobilization glute Body Location left and right glute/ piroformis Mobilization Type Cross-Friction,Rolling Intensity/Depth Moderate Body Position Sidelying low back Body Location nerve slacking LS paraspinals bilatera Mobilization Type Sustained Pressure Intensity/Depth Moderate to superficial Body Position Sidelying Manual Techniques PROM piriformis stretch Type from hooklying Body Location left and right LE Reps/Duration X1 60 seconds each LE MET for right AI left PI, pubic shotgun Type modified without dowel Reps/Duration 6 X 6 sec each Comments Decreased force on initial trial, but was able to perform with adequate force post PROM hip IR Self-Care/Home Management Treatment Activities Self-Care/Home Management Activities abdominal bracing with LE extension and log roll added to HEP PT-OP-R Modalities Start: 04/05/23 10:11 Freq: Status: Active Protocol: Document 05/07/23 09:04 [facility] (Rec: 05/07/23 09:45 [facility] [id number]) Hot Pack/Cold Pack Treatment Hot Pack Location LB/hip Patient Position Sidelying PT-OP-T Assessment and Plan Start: 04/05/23 10:11 Freq: Status: Active Protocol: Document 05/16/23 08:06 [facility] (Rec: 05/16/23 09:37 [facility] [id number]) Physical Therapy Assessment Goals ALEX Impairment 32/50 Short Term Goal (STG) Pt will improve ALEX score to no greater than 27/50 to show improved functional ability STG Duration 05/27 Fdc Goal (LTG) Pt will improve ALEX score to no greater than 20/50 to show improved functional ability LTG Duration 07/08 ROM Short Term Goal (STG) Improve flex to at least 30% of normal to improve ability to bend over STG Duration 05/28 Fdc Goal (LTG) Pt will improve ROM to at least 50% of normal range in all directions for lumbar spine to allow greater ease w/ ADLs LTG Duration 07/08 activity Fdc Goal (LTG) Pt will report being able to play in standing w/grandson more w/o severe inc in pain. LTG Duration 07/08 strength Short Term Goal (STG) Pt will be indep w/HEP STG Duration 05/27 Drapery Supervisor Goal (LTG) Pt will show improved strength to at least 4/5 for all BLE LE MMT to allow greater ease w /mobility. LTG Duration 5/13 Assessment Summary Assessment Patient reports she cannot tell if she feels better or worse end of session, but was able to transfer sit to stand with improved hip hinge, less guarding and grimacing post training. Physical Therapy Plan Frequency and Duration Frequency of Treatment 2x/Week Duration of treatment (weeks) 10 Plan of Care Start Date 04/25/23 Plan of Care End Date 07/04/23 Next Visit Focus/Plan Next Note Type Treatment Note Next Visit Plan Place yoga mat on table for inc cushion review HEP, try to get gentle ROM and strength for hips, back and LEs manual: gentle STM to hips, HS , LB
--- NOTE | 2023-05-18 08:20 | PT.OTN ---
Current Diagnoses Spondylolisthesis, lumbar region (05/18/23) Spondylosis without myelopathy or radiculopathy, lumbar region (05/18/23) Segmental and somatic dysfunction of thoracic region (05/18/23) Segmental and somatic dysfunction of lumbar region (05/18/23) Difficulty in walking, not elsewhere classified (05/18/23) Abnormal posture (05/18/23) Weakness (05/18/23) Physical Therapy Treatment Note PT-OP-A Visit Information Start: 04/05/23 10:11 Freq: Status: Active Protocol: Document 05/18/23 07:31 SP (Rec: 05/18/23 09:03 SP [id number]) Out-Patient Physical Therapy Visit Information Visit Information Visit Type Treatment Note Visit Start Time 07:31 Visit Stop Time 08:20 Visit Number 6 Number of SHOPPER Visits 2 PT-OP-B Current Condition Start: 04/05/23 10:11 Freq: Status: Active Protocol: Document 04/25/23 07:29 [facility] (Rec: 04/25/23 09:03 [facility] [id number]) Current Condition History of Current Condition Onset Date 1994 Current Complaints LBP and B hip pain. History of Current Condition Pt reports LBP and B hip pain (L>R). Pt also gets pain down ant legs to knnes L>R. 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 She felt a pop and felt fire from midback to B knees. She has had PT and aquatic PT, and massage. Aquatic PT was the only thing that helped. Pt has had injections (cortizone in spine ) and it made it worse for 3-4 days but no relief after that . THis was shortly after hurting herself. Pt not working d/t disabled. She was on pain killers for a long time and doctor watned to take her off. She now goes to the methadone clinic. Only surgery is hysterectomy. Pt reports hwen she is hurting really bad , it is hard to bear down for a BM and gets constipation. Sometimes she has an urgency to go. Prior Treatments and Tests MRI: IMPRESSION: 1. Multilevel degenerative disc and facet disease, as well as ligamentum flavum hypertrophy and epidural lipomatosis. 2. Multilevel canal stenoses, worst at L2-L3, L3-L4, and L4- L5, where there are severe canal stenosis. 3. Multilevel moderate foraminal stenosis as described above. Treatment Goals Patient/Caregiver Goals be able to live w/o crying out , be able to play with grandson on her feet and micha him like he likes(2.5 years old) PT-OP-C Subjective Start: 04/05/23 10:11 Freq: Status: Active Protocol: Document 05/18/23 07:31 SP (Rec: 05/18/23 09:03 SP [id number]) OP-PT Subjective Patient Comments Patient Comments Pt reports always hurts across LB into hip and back of legs to knees after PT, 8.5/ 10 upon arrival. She continues to demonstrate guarding with support of BUE coming to standing from waiting room chair and rounded posture gait back to gym upon arrival. PT-OP-F Manual Assessment Start: 04/05/23 10:11 Freq: Status: Active Protocol: Document 04/25/23 07:29 [facility] (Rec: 04/25/23 09:03 [facility] [id number]) Manual Assessments Soft Tissue Assessment Soft Tissue Mobility Assessment Glutes, piriformis, HS, ES, QL B tightness. PT-OP-G Mobility & Gait Start: 04/05/23 10:11 Freq: Status: Active Protocol: Document 04/25/23 07:29 [facility] (Rec: 04/25/23 09:03 [facility] [id number]) OP Gait Assessment Comments Gait Comments does not achieve full L knee ext, dec stance time LLE, B dec pusho ff, fwd lean PT-OP-J Posture/Palpation/Skin Start: 04/05/23 10:11 Freq: Status: Active Protocol: Document 04/25/23 07:29 [facility] (Rec: 04/25/23 09:03 [facility] [id number]) Posture Evaluation Comments Posture Comments inc fwd lean, L knee bent, wt more to RLE, flexed at hips, inc kyphosis, fwd shoulders and head, loss of kyphosis PT-OP-K Range of Motion Start: 04/05/23 10:11 Freq: Status: Active Protocol: Document 04/25/23 07:29 [facility] (Rec: 04/25/23 09:03 [facility] [id number]) Lumbar Spine Range of Motion Lumbar Spine Active Percentage Flexion 15 Extension 5 Rotation Left 10 Rotation Right 10 Lateral Flexion Left 25 Lateral Flexion Right 25 ROM Limitations Pain Comments pain all directions Hip Goniometric Range of Motion Hip ROM Limitations Comments unable to tolerate flex greart then about 60 deg passive B, unable to tolerate SLR testing , seated IR WFL, dec ER w/ limited tolerated to ROM in supine-seated shows limit PT-OP-L Special Tests Start: 04/05/23 10:11 Freq: Status: Active Protocol: Document 04/25/23 07:29 [facility] (Rec: 04/25/23 09:03 [facility] [id number]) Special Tests Lumbar Spine Special Tests Slump Test Results positive B (L sooner than R) Straight Leg Raise Test Results unable to tolerate test PT-OP-M Strength Start: 04/05/23 10:11 Freq: Status: Active Protocol: Document 04/25/23 07:29 [facility] (Rec: 04/25/23 09:03 [facility] [id number]) Hip Strength Hip Manual Muscle Testing Right Flexion (L2) 3 Fair Abduction 2+ Poor+ External Rotation 3+ Fair+ Internal Rotation 3+ Fair+ Left Flexion (L2) 3 Fair Abduction 2+ Poor+ External Rotation 3+ Fair+ Internal Rotation 3+ Fair+ Knee Strength Knee Manual Muscle Testing Right Flexion (S2) 3 Fair Extension (L3) 3 Fair Left Flexion (S2) 3 Fair Extension (L3) 3+ Fair+ Ankle/Foot Strength Ankle and Foot Manual Muscle Testing Right Dorsiflexion (L4) 3+ Fair+ Plantarflexion (S1) 4- Good- Left Dorsiflexion (L4) 4- Good- Plantarflexion (S1) 4- Good- Comments PF seated testing PT-OP-Q Treatments Start: 04/05/23 10:11 Freq: Status: Active Protocol: Document 05/18/23 07:31 SP (Rec: 05/18/23 09:03 SP [id number]) Therapeutic Exercises Supine Exercises LTR Supine Exercise Name AAROM> AROM Side bilateral Resistance BLEs [id number] tball Reps/Minutes 5 reps x3 sets Comments pnfree range, feels less tension in back abd bracing with LE ext Supine Exercise Name (heel slide) Reps/Minutes 2X5 Comments verbal cues to extend LE minimallly and avoid holding breath, PPT/TA breathing from diaphragm in modified restortive pose Reps/Minutes throughout tx Comments vc for breathing Therapeutic Activity Therapeutic Activity supine to sit Name log roll Reps/Minutes X3 rolling to right X 1 rolling to left Comments left and right, one step verbal cues sit to stand Name with hip hinge Reps/Minutes 2 X Comments Patient ed mechanics of sit to stand, and use of self tactile cues for hip hinge Manual Therapy Treatment Soft Tissue Mobilization glute Body Location left and right glute/ piroformis Mobilization Type Myofascial Release,Sustained Pressure Intensity/Depth Moderate Body Position Sidelying low back Body Location B ES, QL LS paraspinals bilatera Mobilization Type Myofascial Release Intensity/Depth Superficial Body Position Sidelying Comments with caudal pressure of ilium Manual Traction LS Details caudal pressure of ilium /c exhale breath Body Position B side Reps/Duration side, hooklying LEs over 55cm tball Comments good feedback response, LBP pain reduction relief Self-Care/Home Management Treatment Education Patient Education Body Mechanics,Home Exercise Program,Joint Protection,Pain Management Other Education Ed log roll technique. SHOPPER/Pt discussion has used Estim in past and had fair response. Pt wanting to try today for self support if utilize home for carryover relief. Trialed with good results Pain reduction 8 .5/10 to 5/10. Continued discussion ROM performance of HEP LS: LTR, TA heelslide PT-OP-R Modalities Start: 04/05/23 10:11 Freq: Status: Active Protocol: Document 05/18/23 07:31 SP (Rec: 05/18/23 09:03 SP [id number]) Hot Pack/Cold Pack Treatment Hot Pack Location B Patient Position Sidelying Patient Tolerance Good PT-OP-T Assessment and Plan Start: 04/05/23 10:11 Freq: Status: Active Protocol: Document 05/18/23 07:31 SP (Rec: 05/18/23 09:03 SP [id number]) Physical Therapy Assessment Goals ALEX Impairment 32/50 Short Term Goal (STG) Pt will improve ALEX score to no greater than 27/50 to show improved functional ability STG Duration 4/1 Custodial Goal (LTG) Pt will improve ALEX score to no greater than 20/50 to show improved functional ability LTG Duration 07/08 ROM Short Term Goal (STG) Improve flex to at least 30% of normal to improve ability to bend over STG Duration 4/2 Custodial Goal (LTG) Pt will improve ROM to at least 50% of normal range in all directions for lumbar spine to allow greater ease w/ ADLs LTG Duration 07/08 activity Speech Therapist Goal (LTG) Pt will report being able to play in standing w/grandson more w/o severe inc in pain. LTG Duration 07/08 strength Short Term Goal (STG) Pt will be indep w/HEP STG Duration 05/27 Speech Therapist Goal (LTG) Pt will show improved strength to at least 4/5 for all BLE LE MMT to allow greater ease w /mobility. LTG Duration 07/08 Assessment Summary Assessment Pt gentle broad pressure and decompression emphasis during manual, better tolerated today . Improved LS rotation LEs over tball and gentle traction of LS and good recall of breath HEP reviewed reported pain reduction in LB. Pt requested use of modalities end of tx that has used in past with significant improvement today 8.07/05 to in LS pain by end tx. SHOPPER discussed Physical Therapy Plan Frequency and Duration Frequency of Treatment 2x/Week Duration of treatment (weeks) 10 Plan of Care Start Date 04/25/23 Plan of Care End Date 07/04/23 Therapeutic Interventions Therapeutic Interventions Balance Training,Gait Training ,Home Exercise Program,Joint Mobilizations,Manual Therapy, Neuromuscular Re-education, Orthotic/Prosthetic Management ,Patient/Caregiver Education, Self-Care/Home Management,Soft Tissue Mobilization,Taping, Therapeutic Activities, Therapeutic Exercises Modalities Cold Pack/Ice Massage,Hot Packs,Traction- Mechanical, Ultrasound Next Visit Focus/Plan Next Note Type Treatment Note Next Visit Plan *Place yoga mat on table for inc cushion. Review HEP, try to get gentle ROM and strength for hips, back and LEs manual: gentle STM to hips, HS , LB
--- NOTE | 2023-05-23 08:22 | PT.OTN ---
Current Diagnoses Spondylolisthesis, lumbar region (05/23/23) Spondylosis without myelopathy or radiculopathy, lumbar region (05/23/23) Segmental and somatic dysfunction of thoracic region (05/23/23) Segmental and somatic dysfunction of lumbar region (05/23/23) Difficulty in walking, not elsewhere classified (05/23/23) Abnormal posture (05/23/23) Weakness (05/23/23) Physical Therapy Treatment Note PT-OP-A Visit Information Start: 04/05/23 10:11 Freq: Status: Active Protocol: Document 05/23/23 07:30 [facility] (Rec: 05/23/23 07:36 [facility] [id number]) Out-Patient Physical Therapy Visit Information Visit Information Visit Type Treatment Note Visit Start Time 07:32 Visit Stop Time 08:25 Visit Number 7 Number of SMOKING PIPE COATER Visits 0 PT-OP-B Current Condition Start: 04/05/23 10:11 Freq: Status: Active Protocol: Document 04/25/23 07:29 [facility] (Rec: 04/25/23 09:03 [facility] [id number]) Current Condition History of Current Condition Onset Date 1994 Current Complaints LBP and B hip pain. History of Current Condition Pt reports LBP and B hip pain (L>R). Pt also gets pain down ant legs to knnes L>R. This has been going on since 1994 when she hurt herself at work and herniated a disc when trying to change patient in the [facility] and pt pulled against her. She felt a pop and felt fire from midback to B knees. She has had PT and aquatic PT, and massage. Aquatic PT was the only thing that helped. Pt has had injections (cortizone in spine ) and it made it worse for 3-4 days but no relief after that . THis was shortly after hurting herself. Pt not working d/t disabled. She was on pain killers for a long time and doctor watned to take her off. She now goes to the methadone clinic. Only surgery is hysterectomy. Pt reports hwen she is hurting really bad , it is hard to bear down for a BM and gets constipation. Sometimes she has an urgency to go. Prior Treatments and Tests MRI: IMPRESSION: 1. Multilevel degenerative disc and facet disease, as well as ligamentum flavum hypertrophy and epidural lipomatosis. 2. Multilevel canal stenoses, worst at L2-L3, L3-L4, and L4- L5, where there are severe canal stenosis. 3. Multilevel moderate foraminal stenosis as described above. Treatment Goals Patient/Caregiver Goals be able to live w/o crying out , be able to play with grandson on her feet and micha him like he likes(2.5 years old) PT-OP-C Subjective Start: 04/05/23 10:11 Freq: Status: Active Protocol: Document 05/23/23 07:30 [facility] (Rec: 05/23/23 07:36 [facility] [id number]) OP-PT Subjective Patient Comments Patient Comments Pt reports pain is the same and PT does not seem to make a difference. She has been doing her exercises. She has been working on movement mechanics she has been taught. Patient Reported Progress Same PT-OP-F Manual Assessment Start: 04/05/23 10:11 Freq: Status: Active Protocol: Document 04/25/23 07:29 [facility] (Rec: 04/25/23 09:03 [facility] [id number]) Manual Assessments Soft Tissue Assessment Soft Tissue Mobility Assessment Glutes, piriformis, HS, ES, QL B tightness. PT-OP-G Mobility & Gait Start: 04/05/23 10:11 Freq: Status: Active Protocol: Document 04/25/23 07:29 [facility] (Rec: 04/25/23 09:03 [facility] [id number]) OP Gait Assessment Comments Gait Comments does not achieve full L knee ext, dec stance time LLE, B dec pusho ff, fwd lean PT-OP-J Posture/Palpation/Skin Start: 04/05/23 10:11 Freq: Status: Active Protocol: Document 04/25/23 07:29 [facility] (Rec: 04/25/23 09:03 [facility] [id number]) Posture Evaluation Comments Posture Comments inc fwd lean, L knee bent, wt more to RLE, flexed at hips, inc kyphosis, fwd shoulders and head, loss of kyphosis PT-OP-K Range of Motion Start: 04/05/23 10:11 Freq: Status: Active Protocol: Document 05/23/23 07:30 [facility] (Rec: 05/23/23 07:41 [facility] [id number]) Lumbar Spine Range of Motion Lumbar Spine Active Percentage Flexion 15 Extension 5 Rotation Left 10 Rotation Right 10 Lateral Flexion Left 20 Lateral Flexion Right 20 ROM Limitations Pain Comments pain all directions PT-OP-L Special Tests Start: 04/05/23 10:11 Freq: Status: Active Protocol: Document 04/25/23 07:29 [facility] (Rec: 04/25/23 09:03 [facility] [id number]) Special Tests Lumbar Spine Special Tests Slump Test Results positive B (L sooner than R) Straight Leg Raise Test Results unable to tolerate test PT-OP-M Strength Start: 04/05/23 10:11 Freq: Status: Active Protocol: Document 05/23/23 07:30 [facility] (Rec: 05/23/23 07:41 [facility] [id number]) Hip Strength Hip Manual Muscle Testing Right Flexion (L2) 3+ Fair+ Abduction 2+ Poor+ External Rotation 3+ Fair+ Internal Rotation 4- Good- Left Flexion (L2) 3+ Fair+ Abduction 2+ Poor+ External Rotation 3+ Fair+ Internal Rotation 4- Good- Knee Strength Knee Manual Muscle Testing Right Flexion (S2) 3+ Fair+ Extension (L3) 3+ Fair+ Left Flexion (S2) 3 Fair Extension (L3) 3+ Fair+ Ankle/Foot Strength Ankle and Foot Manual Muscle Testing Right Dorsiflexion (L4) 3+ Fair+ Plantarflexion (S1) 4- Good- Left Dorsiflexion (L4) 3+ Fair+ Plantarflexion (S1) 4- Good- Comments PF seated testing PT-OP-Q Treatments Start: 04/05/23 10:11 Freq: Status: Active Protocol: Document 05/23/23 07:30 [facility] (Rec: 05/23/23 07:52 [facility] [id number]) Cardio Equipment Recumbent Elliptical (Biodex) Duration (Minutes) 2 Resistance 2 Seat Position 8 Recumbent Bicycle Duration (Minutes) 1 Resistance 0 Seat Position 5 Bicycle (Upright) Duration (Minutes) 1 Resistance 0 Seat Position 7 Gym Equipment Cable Column (Body Solid) Rows Resistance 1 Reps/Time 10 Lat Pull Down Resistance 1 Reps/Time 10 Manual Therapy Treatment Soft Tissue Mobilization glute Body Location left and right glute/ piroformis Mobilization Type Myofascial Release,Sustained Pressure Intensity/Depth Moderate Body Position Sidelying low back Body Location B ES, QL LS paraspinals bilatera Mobilization Type Myofascial Release Intensity/Depth Superficial Body Position Sidelying Comments with caudal pressure of ilium Taping KT Body Location thoracic to lumbar I strip and I strip at mid lumbar Type of Tape Kinesio Tape PT-OP-R Modalities Start: 04/05/23 10:11 Freq: Status: Active Protocol: Document 05/23/23 08:22 [facility] (Rec: 05/23/23 08:22 [facility] [id number]) Electric Stimulation Electric Stimulation LS Body Location LS Intensity 7 Combined With Heat/Cold Hot Pack Comments 10 min; interferential still PT-OP-T Assessment and Plan Start: 04/05/23 10:11 Freq: Status: Active Protocol: Document 05/23/23 07:30 [facility] (Rec: 05/23/23 07:36 [facility] [id number]) Physical Therapy Assessment Goals ALEX Impairment 32/50 Short Term Goal (STG) Pt will improve ALEX score to no greater than 27/50 to show improved functional ability STG Duration 05/27 Nursing Home Goal (LTG) Pt will improve ALEX score to no greater than 20/50 to show improved functional ability LTG Duration 07/08 ROM Short Term Goal (STG) Improve flex to at least 30% of normal to improve ability to bend over 05/22-no change STG Duration 05/28 Nursing Home Goal (LTG) Pt will improve ROM to at least 50% of normal range in all directions for lumbar spine to allow greater ease w/ ADLs LTG Duration 07/08 activity Nursing Home Goal (LTG) Pt will report being able to play in standing w/grandson more w/o severe inc in pain. 05/22-no change LTG Duration 07/08 strength Short Term Goal (STG) Pt will be indep w/HEP STG Duration achieved 05/22 Nursing Home Goal (LTG) Pt will show improved strength to at least 4/5 for all BLE LE MMT to allow greater ease w /mobility. 05/22-no change LTG Duration 07/08 Assessment Summary Assessment Pt has had no change w/PT in past month and notes extreme pain still as she limps into session. She has compliance w/ HEP and does plan to try to go to the gym w/her dgt some so edu given on some machines she could try. At this time, d/t no change w/PT, plan to DC after next visit after working on compliance w/HEP Physical Therapy Plan Frequency and Duration Frequency of Treatment 2x/Week Duration of treatment (weeks) 10 Plan of Care Start Date 04/25/23 Plan of Care End Date 07/04/23 Next Visit Focus/Plan Next Note Type Discharge Summary Next Visit Plan *Place yoga mat on table for inc cushion. Review HEP for home for DC and manual prn show, leg press
--- NOTE | 2023-05-25 11:23 | PT.OTN ---
Current Diagnoses Spondylolisthesis, lumbar region (05/25/23) Spondylosis without myelopathy or radiculopathy, lumbar region (05/25/23) Segmental and somatic dysfunction of thoracic region (05/25/23) Segmental and somatic dysfunction of lumbar region (05/25/23) Difficulty in walking, not elsewhere classified (05/25/23) Abnormal posture (05/25/23) Weakness (05/25/23) Physical Therapy Treatment Note PT-OP-A Visit Information Start: 04/05/23 10:11 Freq: Status: Active Protocol: Document 05/25/23 10:37 NB (Rec: 05/25/23 11:23 NB [id number]) Out-Patient Physical Therapy Visit Information Visit Information Visit Type Treatment Note Visit Start Time 10:37 Visit Stop Time 11:20 Visit Number 8 Number of DIESEL ENGINE ENGINEER Visits 1 PT-OP-B Current Condition Start: 04/05/23 10:11 Freq: Status: Active Protocol: Document 04/25/23 07:29 [facility] (Rec: 04/25/23 09:03 [facility] [id number]) Current Condition History of Current Condition Onset Date 1994 Current Complaints LBP and B hip pain. History of Current Condition Pt reports LBP and B hip pain (L>R). Pt also gets pain down ant legs to knnes L>R. 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 She felt a pop and felt fire from midback to B knees. She has had PT and aquatic PT, and massage. Aquatic PT was the only thing that helped. Pt has had injections (cortizone in spine ) and it made it worse for 3-4 days but no relief after that . THis was shortly after hurting herself. Pt not working d/t disabled. She was on pain killers for a long time and doctor watned to take her off. She now goes to the methadone clinic. Only surgery is hysterectomy. Pt reports hwen she is hurting really bad , it is hard to bear down for a BM and gets constipation. Sometimes she has an urgency to go. Prior Treatments and Tests MRI: IMPRESSION: 1. Multilevel degenerative disc and facet disease, as well as ligamentum flavum hypertrophy and epidural lipomatosis. 2. Multilevel canal stenoses, worst at L2-L3, L3-L4, and L4- L5, where there are severe canal stenosis. 3. Multilevel moderate foraminal stenosis as described above. Treatment Goals Patient/Caregiver Goals be able to live w/o crying out , be able to play with grandson on her feet and micha him like he likes(2.5 years old) PT-OP-C Subjective Start: 04/05/23 10:11 Freq: Status: Active Protocol: Document 05/25/23 10:37 NB (Rec: 05/25/23 11:23 NB [id number]) OP-PT Subjective Patient Comments Patient Comments Pt reports 7/10 pain; she took pain med but it probably hasn 't kicked in yet. The KT tape didn't seem to help because she didn't notice it make a difference and in fact forgot about it. She will follow up with Dr. Benjamin for next steps after PT. PT-OP-F Manual Assessment Start: 04/05/23 10:11 Freq: Status: Active Protocol: Document 04/25/23 07:29 [facility] (Rec: 04/25/23 09:03 [facility] [id number]) Manual Assessments Soft Tissue Assessment Soft Tissue Mobility Assessment Glutes, piriformis, HS, ES, QL B tightness. PT-OP-G Mobility & Gait Start: 04/05/23 10:11 Freq: Status: Active Protocol: Document 04/25/23 07:29 [facility] (Rec: 04/25/23 09:03 [facility] [id number]) OP Gait Assessment Comments Gait Comments does not achieve full L knee ext, dec stance time LLE, B dec pusho ff, fwd lean PT-OP-J Posture/Palpation/Skin Start: 04/05/23 10:11 Freq: Status: Active Protocol: Document 04/25/23 07:29 [facility] (Rec: 04/25/23 09:03 [facility] [id number]) Posture Evaluation Comments Posture Comments inc fwd lean, L knee bent, wt more to RLE, flexed at hips, inc kyphosis, fwd shoulders and head, loss of kyphosis PT-OP-K Range of Motion Start: 04/05/23 10:11 Freq: Status: Active Protocol: Document 05/23/23 07:30 [facility] (Rec: 05/23/23 07:41 [facility] [id number]) Lumbar Spine Range of Motion Lumbar Spine Active Percentage Flexion 15 Extension 5 Rotation Left 10 Rotation Right 10 Lateral Flexion Left 20 Lateral Flexion Right 20 ROM Limitations Pain Comments pain all directions PT-OP-L Special Tests Start: 04/05/23 10:11 Freq: Status: Active Protocol: Document 04/25/23 07:29 [facility] (Rec: 04/25/23 09:03 [facility] [id number]) Special Tests Lumbar Spine Special Tests Slump Test Results positive B (L sooner than R) Straight Leg Raise Test Results unable to tolerate test PT-OP-M Strength Start: 04/05/23 10:11 Freq: Status: Active Protocol: Document 05/23/23 07:30 [facility] (Rec: 05/23/23 07:41 [facility] [id number]) Hip Strength Hip Manual Muscle Testing Right Flexion (L2) 3+ Fair+ Abduction 2+ Poor+ External Rotation 3+ Fair+ Internal Rotation 4- Good- Left Flexion (L2) 3+ Fair+ Abduction 2+ Poor+ External Rotation 3+ Fair+ Internal Rotation 4- Good- Knee Strength Knee Manual Muscle Testing Right Flexion (S2) 3+ Fair+ Extension (L3) 3+ Fair+ Left Flexion (S2) 3 Fair Extension (L3) 3+ Fair+ Ankle/Foot Strength Ankle and Foot Manual Muscle Testing Right Dorsiflexion (L4) 3+ Fair+ Plantarflexion (S1) 4- Good- Left Dorsiflexion (L4) 3+ Fair+ Plantarflexion (S1) 4- Good- Comments PF seated testing PT-OP-Q Treatments Start: 04/05/23 10:11 Freq: Status: Active Protocol: Document 05/25/23 10:37 [facility] (Rec: 05/25/23 11:23 [facility] [id number]) Cardio Equipment Recumbent Bicycle Duration (Minutes) 3 Resistance 0 Seat Position 5 Other dc'd d/t pt c/o pain. Therapeutic Exercises Sidelying Exercises open book & shld ABD Sidelying Exercise Name comfortable range Side bilateral Reps/Minutes 10 ea Comments cues w/beathing Sitting Exercises pelvic tilt Sitting Exercise Name A/P; lat Side bilateral Equipment Used seated on 65 cm tball (uses at home too) Reps/Minutes 15 ea Comments cues for use of deep breaths PF Sitting Exercise Name APs Side bilateral Equipment Used 3# on knees B- pt declines weight today Reps/Minutes 30 ea Hip ER Side bilateral Equipment Used no band Reps/Minutes 20 Comments cues core engagement and, elevated posture away from chair back n glide Sitting Exercise Name comfortable range Side bilateral Reps/Minutes 15 Comments cues to keep head up march Sitting Exercise Name cues core engagement Side bilateral Equipment Used seated on 65cmtball Reps/Minutes 15 Manual Therapy Treatment Soft Tissue Mobilization glute Body Location left and right glute/ piroformis Mobilization Type Myofascial Release,Sustained Pressure Intensity/Depth Moderate Body Position Sidelying low back Body Location B ES, QL LS paraspinals bilatera Mobilization Type Myofascial Release Intensity/Depth Superficial Body Position Sidelying Comments with caudal pressure of ilium Self-Care/Home Management Treatment Education Patient Education Body Mechanics,Home Exercise Program,Joint Protection,Pain Management Other Education HEP review in preparation for discharge. Occasional cues for breath. PT-OP-R Modalities Start: 04/05/23 10:11 Freq: Status: Active Protocol: Document 05/23/23 08:22 [facility] (Rec: 05/23/23 08:22 [facility] [id number]) Electric Stimulation Electric Stimulation LS Body Location LS Intensity 7 Combined With Heat/Cold Hot Pack Comments 10 min; interferential still PT-OP-T Assessment and Plan Start: 04/05/23 10:11 Freq: Status: Active Protocol: Document 05/25/23 10:37 NB (Rec: 05/25/23 11:23 [facility] [id number]) Physical Therapy Assessment Goals ALEX Impairment 32/50 Short Term Goal (STG) Pt will improve ALEX score to no greater than 27/50 to show improved functional ability STG Duration achieved 05/22 Assembly Technician Goal (LTG) Pt will improve ALEX score to no greater than 20/50 to show improved functional ability LTG Duration 07/08 ROM Short Term Goal (STG) Improve flex to at least 30% of normal to improve ability to bend over 05/22-no change STG Duration 05/28 Assembly Technician Goal (LTG) Pt will improve ROM to at least 50% of normal range in all directions for lumbar spine to allow greater ease w/ ADLs LTG Duration 07/08 activity Assisted Goal (LTG) Pt will report being able to play in standing w/grandson more w/o severe inc in pain. 05/22-no change LTG Duration 07/08 strength Short Term Goal (STG) Pt will be indep w/HEP STG Duration achieved 05/22 Assembly Technician Goal (LTG) Pt will show improved strength to at least 4/5 for all BLE LE MMT to allow greater ease w /mobility. 05/22-no change LTG Duration 07/08 Assessment Summary Assessment Treatment focus on HEP review in preparation for discharge. Occasional cues for breath. Recumbent bicycle discontinued due to pt complaint of pain. Positive feedback response to STM to lumbar, glutes and piriformis. Pain 7/10 start of session improves to 5.5/10 end of session. Physical Therapy Plan Frequency and Duration Frequency of Treatment 2x/Week Duration of treatment (weeks) 10 Plan of Care Start Date 04/25/23 Plan of Care End Date 07/04/23 Therapeutic Interventions Therapeutic Interventions Balance Training,Gait Training ,Home Exercise Program,Joint Mobilizations,Manual Therapy, Neuromuscular Re-education, Orthotic/Prosthetic Management ,Patient/Caregiver Education, Self-Care/Home Management,Soft Tissue Mobilization,Taping, Therapeutic Activities, Therapeutic Exercises Modalities Cold Pack/Ice Massage,Hot Packs,Traction- Mechanical, Ultrasound Next Visit Focus/Plan Next Note Type Discharge Summary Next Visit Plan *Place yoga mat on table for inc cushion. Review HEP for home for DC and manual prn show, leg press
--- NOTE | 2023-05-28 10:49 | PT.OPDS ---
Addendum entered and electronically signed by Kylah Contreras PT 05/28/23 10:49: send to doc Original Note: Current Diagnoses Spondylolisthesis, lumbar region (05/25/23) Spondylosis without myelopathy or radiculopathy, lumbar region (05/25/23) Segmental and somatic dysfunction of thoracic region (05/25/23) Segmental and somatic dysfunction of lumbar region (05/25/23) Difficulty in walking, not elsewhere classified (05/25/23) Abnormal posture (05/25/23) Weakness (05/25/23) Visit Care Team Role Provider Type KIRSTIE Londono Family Provider Non-Staff Primary Care Provider Specialty: Nursing Address: [facility], [address] , [place], [address] Email: Lonny Mora DO Attending Provider Physician Referring Provider Specialty: Interventional Radiology Physiatry Pain Management Address: [address] [place], [address] Email: [email or web address] Visit Number Visit Number 8 Discharge Summary PT-OP-B Current Condition Start: 04/05/23 10:11 Freq: Status: Active Protocol: Document 04/25/23 07:29 [facility] (Rec: 04/25/23 09:03 [facility] [id number]) Current Condition History of Current Condition Onset Date 1994 Current Complaints LBP and B hip pain. History of Current Condition Pt reports LBP and B hip pain (L>R). Pt also gets pain down ant legs to knnes L>R. 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 She felt a pop and felt fire from midback to B knees. She has had PT and aquatic PT, and massage. Aquatic PT was the only thing that helped. Pt has had injections (cortizone in spine ) and it made it worse for 3-4 days but no relief after that . THis was shortly after hurting herself. Pt not working d/t disabled. She was on pain killers for a long time and doctor watned to take her off. She now goes to the methadone clinic. Only surgery is hysterectomy. Pt reports hwen she is hurting really bad , it is hard to bear down for a BM and gets constipation. Sometimes she has an urgency to go. Prior Treatments and Tests MRI: IMPRESSION: 1. Multilevel degenerative disc and facet disease, as well as ligamentum flavum hypertrophy and epidural lipomatosis. 2. Multilevel canal stenoses, worst at L2-L3, L3-L4, and L4- L5, where there are severe canal stenosis. 3. Multilevel moderate foraminal stenosis as described above. Treatment Goals Patient/Caregiver Goals be able to live w/o crying out , be able to play with grandson on her feet and micha him like he likes(2.5 years old) PT-OP-C Subjective Start: 04/05/23 10:11 Freq: Status: Active Protocol: Document 05/25/23 10:37 [facility] (Rec: 05/25/23 11:23 [facility] [id number]) OP-PT Subjective Patient Comments Patient Comments Pt reports 7/10 pain; she took pain med but it probably hasn 't kicked in yet. The KT tape didn't seem to help because she didn't notice it make a difference and in fact forgot about it. She will follow up with Dr. Benjamin for next steps after PT. PT-OP-F Manual Assessment Start: 04/05/23 10:11 Freq: Status: Active Protocol: Document 04/25/23 07:29 [facility] (Rec: 04/25/23 09:03 [facility] [id number]) Manual Assessments Soft Tissue Assessment Soft Tissue Mobility Assessment Glutes, piriformis, HS, ES, QL B tightness. PT-OP-G Mobility & Gait Start: 04/05/23 10:11 Freq: Status: Active Protocol: Document 04/25/23 07:29 [facility] (Rec: 04/25/23 09:03 [facility] [id number]) OP Gait Assessment Comments Gait Comments does not achieve full L knee ext, dec stance time LLE, B dec pusho ff, fwd lean PT-OP-J Posture/Palpation/Skin Start: 04/05/23 10:11 Freq: Status: Active Protocol: Document 04/25/23 07:29 [facility] (Rec: 04/25/23 09:03 [facility] [id number]) Posture Evaluation Comments Posture Comments inc fwd lean, L knee bent, wt more to RLE, flexed at hips, inc kyphosis, fwd shoulders and head, loss of kyphosis PT-OP-K Range of Motion Start: 04/05/23 10:11 Freq: Status: Active Protocol: Document 05/23/23 07:30 [facility] (Rec: 05/23/23 07:41 [facility] [id number]) Lumbar Spine Range of Motion Lumbar Spine Active Percentage Flexion 15 Extension 5 Rotation Left 10 Rotation Right 10 Lateral Flexion Left 20 Lateral Flexion Right 20 ROM Limitations Pain Comments pain all directions PT-OP-L Special Tests Start: 04/05/23 10:11 Freq: Status: Active Protocol: Document 04/25/23 07:29 [facility] (Rec: 04/25/23 09:03 [facility] [id number]) Special Tests Lumbar Spine Special Tests Slump Test Results positive B (L sooner than R) Straight Leg Raise Test Results unable to tolerate test PT-OP-M Strength Start: 04/05/23 10:11 Freq: Status: Active Protocol: Document 05/23/23 07:30 [facility] (Rec: 05/23/23 07:41 [facility] [id number]) Hip Strength Hip Manual Muscle Testing Right Flexion (L2) 3+ Fair+ Abduction 2+ Poor+ External Rotation 3+ Fair+ Internal Rotation 4- Good- Left Flexion (L2) 3+ Fair+ Abduction 2+ Poor+ External Rotation 3+ Fair+ Internal Rotation 4- Good- Knee Strength Knee Manual Muscle Testing Right Flexion (S2) 3+ Fair+ Extension (L3) 3+ Fair+ Left Flexion (S2) 3 Fair Extension (L3) 3+ Fair+ Ankle/Foot Strength Ankle and Foot Manual Muscle Testing Right Dorsiflexion (L4) 3+ Fair+ Plantarflexion (S1) 4- Good- Left Dorsiflexion (L4) 3+ Fair+ Plantarflexion (S1) 4- Good- Comments PF seated testing PT-OP-T Assessment and Plan Start: 04/05/23 10:11 Freq: Status: Active Protocol: Document 05/28/23 10:47 [facility] (Rec: 05/28/23 10:49 [facility] [id number]) Physical Therapy Assessment Goals ALEX Impairment 32/50 Short Term Goal (STG) Pt will improve ALEX score to no greater than 27/50 to show improved functional ability STG Duration achieved 05/22 Upfitter Goal (LTG) Pt will improve ALEX score to no greater than 20/50 to show improved functional ability LTG Duration 07/08 ROM Short Term Goal (STG) Improve flex to at least 30% of normal to improve ability to bend over 05/22-no change STG Duration / Upfitter Goal (LTG) Pt will improve ROM to at least 50% of normal range in all directions for lumbar spine to allow greater ease w/ ADLs LTG Duration 07/08 activity Residential Goal (LTG) Pt will report being able to play in standing w/grandson more w/o severe inc in pain. 05/22-no change LTG Duration 07/08 strength Short Term Goal (STG) Pt will be indep w/HEP STG Duration achieved 05/22 Upfitter Goal (LTG) Pt will show improved strength to at least 4/5 for all BLE LE MMT to allow greater ease w /mobility. 05/22-no change LTG Duration 07/08 Assessment Summary Assessment W/discussion w/pt and testing of ROM and strength, pt is not making signficaint progress w /PT at this time despite compliance w/HEP. ALEX score did improve when pt filled out today but when asked about daily tasks, she does not feel like she has made any change. She came in w/limp w/ visit . DC at this time d/t no signficant progress w/PT Physical Therapy Plan Discharge Physical Therapy Discharge Reasons Plateau in Progress
== END 2023-05-30 13:43 ==
LOC: PHYS 10:30
PROVIDERS: Family Provider Nurse Practitioner; PCP Nurse Practitioner; Referring Provider Physical Medicine & Rehabilitation; Visit Provider Physical Medicine & Rehabilitation
DX: M99.03 Segmental and somatic dysfunction of lumbar region (principal); M99.02 Segmental and somatic dysfunction of thoracic region; M47.816 Spondylosis without myelopathy or radiculopathy, lumbar region; M43.16 Spondylolisthesis, lumbar region; R26.2 Difficulty in walking, not elsewhere classified; R53.1 Weakness; R29.3 Abnormal posture
CPT/HCPCS: 97014; 97110; 97140; 97162; 97530; 97535; G0283

== ENCOUNTER 2023-07-19 12:20 | Outpatient (CLI) | payer OTHER, MEDICAID, SELFPAY ==
[2023-07-19] VITALS (9 sets, daily range): BP systolic 103–127; BP diastolic 68–82; PULSE 65–80; RESP 10–18; O2SAT 94–99
--- NOTE | 2023-07-19 13:00 | DI.RAD.S_ITS ---
PROCEDURE: PAIN L INTERLAMINAR/CAUDAL INJ INDICATIONS: L4-5 translaminar SANDHYA COMPARISON: None. FINDINGS: Fluoroscopic spot filming was performed to verify placement of spinal needles at the L4-5 level(s), as labeled on the films. Appropriate location(s) of the needle tip(s) was confirmed by injection of iodinated contrast. IMPRESSION: Fluoro guidance was provided intraoperatively for L4-5 translaminar SANDHYA performed by the ordering physician. Dictated by: Dennis Linton M.D. on 07/19/2023 at 15:38 Approved by: Dennis Linton M.D. on 07/19/2023 at 15:39
[2023-07-19] MEDS: MIDAZOLAM 2 MG/2 ML VIAL IV (13:29)
[2023-07-19] MEDS: DEXAMETHASONE 10 MG/ML VIAL INJ (13:35)
[2023-07-19] MEDS: BUPIVACAINE 0.25% (PF) VIAL 2 ML INJ (13:35)
[2023-07-19] MEDS: BETAMETHASONE 30 MG/5 ML MDV 6 MG INJ (13:35)
[2023-07-19] MEDS: iopamidoL 15 ML VIAL 3 ML INJ (13:35)
--- NOTE | 2023-07-19 13:47 | P.PCN_ITS ---
Date/Time/Diagnoses Date of procedure: 07/19/23 Time of procedure: 13:47 Pre-procedure diagnosis: 1. HNP WITH RADICULAR FEATURES, 2. MULTILEVEL CENTRAL STENOSIS, Post-procedure diagnosis: same Procedure Notes Procedure: 1. FLUOROSCOPICALLY GUIDED CONTRAST CONTROLLED INTERLAMINAR EPIDURAL STEROID INJECTION -L4/5 Indications: Sasha is referred by KIRSTIE Navarro for treatment of Bilateral Foraminal Stenosis R>L LE symptoms. Physician: Lonny Moar Total Fluoroscopy time (seconds): 7 Total sedation minutes: 11 Complications: none Procedure in detail & Post-procedure care: FINDINGS Multilevel Central Spinal Stenosis with Nerve Root Compression DESCRIPTION OF PROCEDURE Fluoroscopically guided, contrast-controlled L4/5 translaminar epidural steroid injection. Following review of allergy and review of potential side effects and complications, including, but not necessarily limited to, infection, allergic reaction, local tissue breakdown, temporary as well as permanent nerve injury, paralysis, stroke and possible , the patient indicated that the patient understood and agreed to proceed. An informed consent document was signed by the patient, witnessed by a nurse, and placed in the patient's chart. Additionally, other treatment options including modalities, medications, and physical therapy were reviewed with the patient. After review of previous anaesthesic history and IV conscious sedation the patient was deemed safe to proceed with today?s procedure with IV conscious sedation as ASA class II designation. Safety time-out was performed to confirm patient ID, procedure to be performed and site of procedure. IV sedation was accomplished with a combination of 2mg of Versed was administered by the RN after DO order, titrated to patient comfort during the course of the procedure while the patient remained responsive to all verbal commands In the prone position, following sterile prep and drape of the lumbar region, the L4/5 translaminar space was identified fluoroscopically. The skin was anesthetized via a 25-gauge, 1.5inch needle with 1% lidocaine solution. At this point, a 22-gauge short bevel spinal needle was atraumatically introduced and advanced under fluoroscopic guidance into the region of the L4/5 translaminar space. Depth was confirmed on lateral view. Radiological data, including multiple fluoroscopic views of the lumbar spine, reveal a spinal needle at the L4/5 translaminar space. Lateral views then show placement of the needle in the epidural space. Subsequent views show contrast material flowing superiorly and inferiorly in the epidural space. No vascular or intrathecal uptake is observed. At this point, using loss of resistance technique with saline and air, the epidural space was entered. This was confirmed following negative aspiration with injection of approximately 1.5cc of Isovue 200, showing excellent epidural flow without vascular or intrathecal uptake. At this point, 1cc of 1% lidocaine solution combined with 2cc or 10mg of dexamethasone and 6mg betamethasone was injected without incident. The patient tolerated the procedure well without signs or symptoms of complications prior to transfer to the recovery area continued monitoring without incident. The patient was then transferred to the recovery area where they were observed for an appropriate period of time after the injection. The patient reported a VAS score of 6 prior to the procedure and a post- procedure VAS of 0. POST OP INSTRUCTIONS The patient was provided a Pain Log to continue to record their response to the target-specific procedure prior to follow-up visit with their referring physician. Additionally, specific post-injection care instructions and a contact number to our office were provided if concerns arise regarding possible complications associated with the procedure are suspected.
== END 2023-07-19 14:05 | disposition home or self-care (01) ==
LOC: RAD 12:21
PROVIDERS: Family Provider Nurse Practitioner; PCP Nurse Practitioner; Referring Provider Physical Medicine & Rehabilitation; Visit Provider Physical Medicine & Rehabilitation
DX: M51.16 Intervertebral disc disorders with radiculopathy, lumbar region (principal); M48.061 Spinal stenosis, lumbar region without neurogenic claudication
CPT/HCPCS: 62323; 99152; J0702; J1100; J2250; J3490